=== PATIENT | female | born 1960 | race Caucasian/White ===

== ENCOUNTER → 2017-03-10 | Day surgery (SDC) | payer OTHER ==
[~2017-03-10] VITALS: Ht 165.1 cm; Wt 85.7 kg
[~2017-03-10] MED LIST: CALCIUM + VITA1 EACH PO; CHOLESTYRAMINE P4 GM PO; HYDROCHLOROTHIA25 MG PO; METOPROLOL TART25 MG PO; NEXIUM20 MG PO; OMEPRAZOLE40 MG PO; PHENTERMINE HCL15 MG PO; TRAZODONE HCL50 MG PO
== END | disposition home or self-care (01) ==
LOC: OR 08:02
PROVIDERS: Internal Medicine Gastroenterology
PROC: 0DBH8ZZ Excision of Cecum, Via Natural or Artificial Opening Endoscopic (ICD-10-PCS; principal; 2017-03-10 16:15)
DX: Z12.11 Encounter for screening for malignant neoplasm of colon (principal); D12.0 Benign neoplasm of cecum; K64.0 First degree hemorrhoids; I10 Essential (primary) hypertension; E66.9 Obesity, unspecified; G47.30 Sleep apnea, unspecified; K21.9 Gastro-esophageal reflux disease without esophagitis; Z85.3 Personal history of malignant neoplasm of breast; Z79.899 Other long term (current) drug therapy; Z90.722 Acquired absence of ovaries, bilateral; Z98.82 Breast implant status; Z87.19 Personal history of other diseases of the digestive system; Z87.440 Personal history of urinary (tract) infections
CPT/HCPCS: J7030

== ENCOUNTER → 2022-04-25 | Outpatient (CLI) | payer SELFPAY | LOC: RAD 09:30 | DX: K44.9 Diaphragmatic hernia without obstruction or gangrene (principal) | CPT/HCPCS: 74221 ==